=== PATIENT | female | born 2000 | race Caucasian/White ===

== ENCOUNTER 2018-06-10 07:40 | Day surgery (SDC) | payer BC ==
[~2018-06-10 07:40] MED LIST: Buffered Lidocaine 0.9% SYRIN* 5 ML/SYR SYRINGE INTRADERM ONE; Dexamethasone IV* 4 MG/ML 1 ML (4 MG) IV SLOW PU ONE; Famotidine IV* 10 MG/ML 2 ML (20 mg) IV ONE
[2018-06-10] MEDS ORDERED: Famotidine IV* 10 MG/ML 2 ML (20 mg) ONE (07:42)
[2018-06-10] MEDS ORDERED: Dexamethasone IV* 4 MG/ML 1 ML (4 MG) ONE (07:42)
[2018-06-10 08:17] LABS: Hematocrit 43 % (35-47); Hemoglobin 14.9 g/dl (12.0-16.0); Mean Corpuscular HGB Conc 35 g/dl (31-36); Mean Corpuscular Hemoglobin 30 pg (27-31); Mean Corpuscular Volume 87 fL (80-97); Mean Platelet Volume 7.2 um3 (7.4-10.4); Platelet Count 262 10^3/ul (150-450); Red Blood Count 4.96 10^6/ul (4.00-5.40); Red Cell Distribution Width 13 % (10.5-15); White Blood Count 10.4 10^3/ul (3.5-10.8)
[2018-06-10] MEDS ORDERED: Bupivacaine 0.25% W/EPI* 10 ML SDV ONE (08:23)
[2018-06-10] MEDS ORDERED: Midazolam* 1 MG/ML 5 ML VIAL (5 MG) ONE (08:58)
[2018-06-10] MEDS ORDERED: fentaNYL* 50 MCG/ML 2 ML VIAL (100 MCG VIAL) ONE (08:58)
[2018-06-10] MEDS ORDERED: DiMENhydriNATE IV* 50 MG/ML VIAL IV PUSH PRN (09:14)
[2018-06-10] MEDS ORDERED: fentaNYL* 50 MCG/ML 2 ML VIAL (100 MCG VIAL) IV PRN (09:14)
[2018-06-10] MEDS ORDERED: Scopolamine 1.5 mg* PATCH TRANSDERM PRN (09:14)
[2018-06-10] MEDS ORDERED: Naloxone* 0.4 MG/ML 1 ML VIAL IV PRN (09:14)
[2018-06-10] MEDS ORDERED: oxyCODONE/Acetamin 5/325 MG* TAB PO PRN (09:14)
[2018-06-10] MEDS ORDERED: Ondansetron INJ* 2 MG/ML VIAL IV PRN (09:14)
[2018-06-10] MEDS ORDERED: Ketorolac INJ* 30 MG/ML 1 ML VIAL ONE (09:24)
[2018-06-10] MEDS ORDERED: Propofol* 10 MG/ML 20 ML BTL IV PUSH ONE (09:24)
[2018-06-10] MEDS ORDERED: Ondansetron INJ* 2 MG/ML VIAL ONE (09:24)
[2018-06-10] MEDS ORDERED: Lidocaine 2% PF * 5 ML VIAL ONE (09:25)
[2018-06-10] MEDS ORDERED: Lidocaine 1% INJ* 10 MG/ML 30 ML SDV ONE (10:19)
[2018-06-10] MEDS ORDERED: Lidocaine 1%* 5 ML VIAL ONE (10:20)
[2018-06-10] MEDS ORDERED: Dibucaine 1% 28.35 GM TUBE TOPICAL PRN (11:30)
[2018-06-10] MEDS ORDERED: Ibuprofen TAB* 400 MG PO PRN (11:30)
[2018-06-10 12:08] VITALS: BP 109/68
--- NOTE | 2018-06-11 21:54 | OP ---
OPERATIVE REPORT: DATE OF OPERATION: 06/10/18 DATE OF : [birth year] SURGEON: Hattie Omer MD ANESTHESIOLOGIST: Dr. Chilel. ANESTHESIA: General. PRE-OP DIAGNOSIS: Symptomatic labial hypertrophy. POST-OP DIAGNOSIS: Symptomatic labial hypertrophy. OPERATIVE PROCEDURE: Labioplasty. ESTIMATED BLOOD LOSS: Minimal. URINE OUTPUT: Not measured. IV FLUIDS: 800 cc lactated Ringer's. MATERIALS TO LAB: Labial skin segments. INDICATIONS: This patient is a 17-year-old 0, who presented to the office at least twice with request for correction of her labial hypertrophy. The patient had very long labia minora, which were uncomfortable with daily life due to the redundant skin. She was initially seen in the office and referred to a clinic in [place]. However, that office refused to do any procedure for her and she reported she felt as though they thought that it was a purely cosmetic concern. The patient repeatedly emphasized as she did not have any concerns about the cosmesis, but the redundant skin caused significant daily discomfort. On examination, the right labia minora was significantly long extending to at least 5 cm. Considering the patient's concerns and her exam, decision was made to proceed with a labioplasty. Plan is to do labioplasty procedure on both sides in order to preserve symmetry. The patient was extensively counseled regarding the risks of surgery including undesired cosmetic results, chronic discomfort or pain, bleeding, and infection. Consent was signed. FINDINGS: As above. Procedure uncomplicated. DESCRIPTION OF PROCEDURE: The risks, benefits, and alternatives were described to the patient and informed consent was obtained. The patient was taken to the operating room with IV running where general anesthesia was induced and found to be adequate. The patient was prepped and draped in the normal sterile fashion in the high lithotomy position in [facility]. A time-out was performed. The left and right labia minora were extended laterally and well visualized. A marking pen was used to demarcate the areas of resection. Care was taken to not remove too much skin. 1% plain lidocaine was then infiltrated deep to the incision sites on both sides. A 15 blade scalpel was then used to incise the skin of the right labia minora along the incision sites. Once this was performed, a small amount of bleeding was coagulated using a needle tip Bovie. Care was taken to avoid excessive cauterization. A 4-0 Vicryl was then used to close the skin opening with an imbricating running stitch. There was excellent hemostasis present at that time. The same was performed on the left side removing significantly less skin, but to make it somewhat symmetrical. The bleeding was again minimally cauterized and the skin was closed without difficulty. At that time, there was excellent hemostasis present. The patient was returned to supine position and allowed to awaken. The patient tolerated the procedure well. Sponge, lap, and needle counts were correct x2. [id number]/[facility] #: [id number] [facility]
== END 2018-06-10 12:10 | disposition home or self-care (01) ==
LOC: OR 07:40
PROVIDERS: ATTEND Obstetrics & Gynecology
DX: N90.69 Other specified hypertrophy of vulva (principal); F32.9 Major depressive disorder, single episode, unspecified
CPT/HCPCS: 36415; 81025; 85027; 88304; J1100; J1885; J2250; J2405; J2704; J3010

== ENCOUNTER 2018-06-11 18:32 | Emergency (ER) | payer BC ==
--- OUTSIDE RECORDS SUMMARY | 2018-06-11 18:46 | XMS REPORT ---
:2000 External Reference #:[id number] Author Organization [facility] Address [address] [place] [address] Phone [phone] Care Team Providers Name Role Phone Hattie Omer MD Care Team Information Sales Technician Unavailable Payers Type Date Identification Numbers Payment Provider Subscriber Commercial Policy Number: [id number] [facility] Par Myrna Garcia PayID: [id number] [employer] [address] [place] [address] Problems Description No Information Family History Date Family Member(s) Problem(s) Comments Father A&W Mother A&W First Brother A&W First Sister A&W Paternal Grandfather due to Lung Cancer () Paternal Grandmother A&W Maternal Grandfather due to Lung Cancer () Maternal Grandmother due to Colon Cancer () Maternal Grandmother due to Ovarian Cancer () Social History Type Date Description Comments Education Highest level completed, 12th grade Education Currently working on Bachelor's Degree Marital Status Single Lives With Parents , [employer] [place] [employer] Home-Account Healthy, Well Balanced Occupation Student Occupation [employer] Cigarette Use Never Smoked Cigarettes ETOH Use Denies alcohol use Recreational Drug Use Denies Drug Use Smoking Patient has never smoked Daily Caffeine Consumes on average 1 cup of coffee per day Daily Caffeine Consumes on average 1 cup of tea per day Exercise Type/Frequency Exercises regularly Seat Belt/Car Seat Always uses seat belt Currently Active Patient is currently sexually active Condom Use Always Contraceptive Methods Current methods include levonorgestrel IUD STD's No STD History Allergies, Adverse Reactions, Alerts Date Description Reaction Status Severity Comments 07/24/2017 NKDA active Medications Medication Date Status Form Strength Qnty SIG Indications Ordering Provider Mirena (52 MG) Active IUD 20mcg/24HR Unknown 00 Prozac Active Capsules 20mg 1 by Unknown 00 mouth every day Medications Administered in Office Medication Date Status Form Strength Qnty SIG Indications Ordering Provider PT SCRN Tbco Administered Injection Phaelon Id as Non User 018 MD Negra PT SCRN Tbco Administered Injection Phaelon Id as Non User 018 MD Negra Vital Signs Date Vital Result Comment 06/09/2018 BP Systolic 106 mmHg BP Diastolic 68 mmHg Body Temperature 97.9 F Heart Rate 72 /min Respiratory Rate 12 /min Height 61 inches 5'1" Weight 111.00 lb BMI (Body Mass Index) 21.0 kg/m2 0 03/30/2018 BP Systolic 114 mmHg BP Diastolic 72 mmHg Height 61 inches 5'1" Weight 118.00 lb BMI (Body Mass Index) 22.3 kg/m2 Last Menstrual Period 6741100 0 07/24/2017 BP Systolic 108 mmHg BP Diastolic 76 mmHg Height 61 inches 5'1" Weight 118.00 lb BMI (Body Mass Index) 22.3 kg/m2 Last Menstrual Period 1762981 0 Results Description No Information Procedures Description No Information Encounters Type Date Location Provider CPT E/M Dx Office Visit 06/09/2018 10:00a [facility] [place] [address] Z01.818 N90.60 Office Visit 03/30/2018 8:30a [facility] [place] [address] N90.60 Office Visit 07/24/2017 2:30p [facility] Keena Connell M.D. 61695 N90.89 Plan of Care Future Appointment(s):06/10/2018 9:30 am - Hattie Omer MD at [facility] O [id number] 10:30 am - Hattie Omer MD at [facility]
--- NOTE | 2018-06-11 19:37 | ED ---
GI/ HPI - HPI Summary HPI Summary: This is mikel Aldridge documenting for attending Julius Walter MD. This patient is a 17 year old F presenting to [facility] accompanied by her mother with a chief complaint of vaginal bleeding since 17:50. The patient had labial minora hypertrophy s/p reduction by Dr. Omer 1 day ago. Patient sated noted excess vaginal bleeding after she took a shower this evening. The patient notes that she thinks one of the sutures came out. The patient rates the pain 3/10 in severity. Symptoms aggravated by urination. Symptoms alleviated by nothing. The patient reports that she has been taking dose of Percocet for pain and using a numbing cream after she urinates. - History of Current Complaint Chief Complaint: EDVaginalBleeding Time Seen by Provider: 06/11/18 19:17 Stated Complaint: POST SURGERY/BLEEDING Hx Obtained From: Patient Hx Last Menstrual Period: 3 weeks ago Onset/Duration: Started Hours Ago, Atraumatic, Still Present Timing: Constant, Lasting Hours Severity: Mild Current Severity: Mild Pain Intensity: 3 Additional Location for Females: Other - labia Additional Signs & Symptoms: Positive: Vaginal Bleeding - Allergy/Home Medications Allergies/Adverse Reactions: Allergies Allergy/AdvReac Type Severity Reaction Status Date / Time No Known Allergies Allergy Unverified 06/10/18 07:56 PMH/Surg Hx/FS Hx/Imm Hx Endocrine/Hematology History: Denies: Hx Diabetes, Hx Thyroid Disease Cardiovascular History: Denies: Hx Hypertension Respiratory History: Denies: Hx Asthma, Hx Chronic Obstructive Pulmonary Disease (COPD) GI History: Denies: Hx Ulcer Comment Only: Other GI Disorders - CHOLESTECTOMY AT AGE 4, labial History: Reports: Other Problems/Disorders - labia minor hypertrophy Sensory History: Denies: Hx Contacts or Glasses, Hx Hearing Aid Opthamlomology History: Denies: Hx Contacts or Glasses Psychiatric History: Reports: Hx Depression - control with meds - Surgical History Surgery Procedure, Year, and Place: Gall Bladder age 4, [facility]. Labiaplasty, [facility] 06/10/18 Hx Anesthesia Reactions: No Infectious Disease History: No Infectious Disease History: Denies: Hx Hepatitis, Hx Human Immunodeficiency Virus (HIV), Traveled Outside the [place] in Last 30 Days - Family History Known Family History: Positive: None - patient denies relevant FHx - Social History Alcohol Use: None Substance Use Type: Reports: None Smoking Status (MU): Never Smoked Tobacco Review of Systems Negative: Fever Negative: Epistaxis Negative: Cough Positive: pain - vaginal pain, other - vaginal bleeding All Other Systems Reviewed And Are Negative: Yes Physical Exam - Summary Physical Exam Summary: VITAL SIGNS: Reviewed. GENERAL: Patient is anxious, tearful. HEAD AND FACE: No signs of trauma. No ecchymosis, hematomas or skull depressions. No sinus tenderness. EYES: PERRLA, EOMI x 2, No injected conjunctiva, no nystagmus. EARS: Hearing grossly intact. Ear canals and tympanic membranes are within normal limits. MOUTH: Oropharynx within normal limits. NECK: Supple, trachea is midline, no adenopathy, no JVD, no carotid bruit, no c- spine tenderness, neck with full ROM. CHEST: Symmetric, no tenderness at palpation LUNGS: Clear to auscultation bilaterally. No wheezing or crackles. CVS: Regular rate and rhythm, S1 and S2 present, no murmurs or gallops appreciated. ABDOMEN: Soft, non-tender. No signs of distention. No rebound no guarding, and no masses palpated. Bowel sounds are normal. EXTREMITIES: FROM in all major joints, no edema, no cyanosis or clubbing. NEURO: Alert and oriented x 3. No acute neurological deficits. Speech is normal and follows commands. SKIN: Dry and warm PSYCH: Patient is anxious and tearful GENITAL EXAM: Reyna as senior policy associate. No signs of active bleeding. No inflammatory signs. Suture in place Triage Information Reviewed: Yes Vital Signs On Initial Exam: Initial Vitals Temp Pulse Resp BP Pulse Ox 97.6 F 102 18 128/87 100 06/11/18 18:33 06/11/18 18:33 06/11/18 18:33 06/11/18 18:33 06/11/18 18:33 Vital Signs Reviewed: Yes Diagnostics - Vital Signs Vital Signs Temp Pulse Resp BP Pulse Ox 06/11/18 18:33 97.6 F 102 18 128/87 100 - Laboratory Lab Statement: Any lab studies that have been ordered have been reviewed, and results considered in the medical decision making process. GIGU Course/Dx - Course Course Of Treatment: This patient is a 17 year old F with labial minora hypertrophy s/p reduction by Dr. Omer 1 day ago. Patient sated noted excess vaginal bleeding after she took a shower this evening. Physical exam revealed no active vaginal bleeding and suture in place. Patient will be discharged home with follow up from Dr. Omer. The patient is agreeable with this plan. - Diagnoses Provider Diagnoses: Encounter for postoperative wound check Discharge - Sign-Out/Discharge Documenting (check all that apply): Patient Departure - Discharge Plan Condition: Stable Disposition: HOME Patient Education Materials: Postoperative Bleeding (ED) Referrals: Inessa Muse MD [Primary Care Provider] - Hattie Omer MD [Medical Doctor] - 3 Days (Follow up with Dr. Omer in 3 days) Additional Instructions: Follow up with Dr. Omer in 3 days on Thursday06/14/18. Return to the emergency department with any new or worsening symptoms. - Billing Disposition and Condition Condition: STABLE Disposition: Home
[2018-06-11 19:56] VITALS: BP 133/80
== END 2018-06-11 19:46 | disposition home or self-care (01) ==
LOC: ED 18:32
DX: N93.9 Abnormal uterine and vaginal bleeding, unspecified (principal); Z98.890 Other specified postprocedural states; F32.9 Major depressive disorder, single episode, unspecified
CPT/HCPCS: 99281